=== PATIENT | male | born 1960 ===

== ENCOUNTER 2017-07-28 10:50 | Emergency (ER) | payer MEDICAID ==
[2017-07-28 11:12] VITALS: BMI 22.8
[2017-07-28 11:14] VITALS: BP 107/77; PULSE 89; RESP 20; TEMP 97.9; O2SAT 99
--- NOTE | 2017-07-28 11:23 | ED PDOC ---
Upper Extremity Pain/Injury Time Seen by Provider: 07/28/17 11:19 Chief Complaint (Nursing): Upper Extremity Problem/Injury Chief Complaint (Provider): Finger injury History Per: Patient History/Exam Limitations: no limitations Onset/Duration Of Symptoms: Other (one week ago) Current Symptoms Are (Timing): Gone Now Quality: "Pain" Severity: Mild Exacerbating Factor(s): Movement Additional Complaint(s): 56 year old male presents to ED for wound check of right 4th digit. He states one week ago he got finger caught in car door. He states he had blood under nail which he drained himself. The finger had pulsating pain for few days and now has resolved. He states his family member is being seen in ED and while he was here, he wanted his finger checked. Denies numbness, limitation of movement , fever, drainage. Past Medical History Reviewed: Historical Data, Nursing Documentation, Vital Signs Vital Signs: Last Vital Signs Temp 97.9 F 07/28/17 11:13 Pulse 89 07/28/17 11:13 Resp 20 07/28/17 11:13 BP 107/77 07/28/17 11:13 Pulse Ox 99 07/28/17 11:13 - Medical History PMH: Diabetes - Family History Family History: States: Unknown Family Hx - Living Arrangements Living Arrangements: With Family - Social History Current smoker - smoking cessation education provided: No Alcohol: None Drugs: Denies - Allergies Allergies/Adverse Reactions: Allergies Allergy/AdvReac Type Severity Reaction Status Date / Time No Known Allergies Allergy Verified 07/28/17 11:16 Review of Systems ROS Statement: Except As Marked, All Systems Reviewed And Found Negative Musculoskeletal: Positive for: Hand Pain (finger injury) Physical Exam - Reviewed Nursing Documentation Reviewed: Yes Vital Signs Reviewed: Yes - Physical Exam Appears: Positive for: Non-toxic, No Acute Distress Head Exam: Positive for: ATRAUMATIC, NORMAL INSPECTION, NORMOCEPHALIC Skin: Positive for: Warm, Dry Eye Exam: Positive for: Normal appearance Neck: Positive for: Normal Extremity: Positive for: Normal ROM, Other (Right fourth digit partial 10% subungual hematoma at base of nail plate, no tenderness to finger. ). Negative for: Swelling Neurologic/Psych: Positive for: Alert, Oriented - ECG O2 Sat by Pulse Oximetry: 99 Medical Decision Making Medical Decision Making: Impression: Finger contusion and subungual hematoma Plan: Xray of finger Patient then states he does not want xray, injury week old and has no pain. He simply wanted to know if he will lose the nail. I explained to patient the nail may fall off, just to keep area clean and dry. Disposition - Clinical Impression Clinical Impression: Subungual hematoma of digit of hand, Finger contusion - Patient ED Disposition Is Patient to be Admitted: No Counseled Patient/Family Regarding: Diagnosis, Need For Followup - Disposition [facility]errals: [facility] [Outside] Disposition: Routine/Home Disposition Time: 11:30 Condition: GOOD Additional Instructions: Mantenga las lesiones de los dedos limpias y secas es posible que la ua se caiga Tristin un seguimiento con de la fuente mdico Instructions: Subungual Hematoma (ED) Print Language: YI - POA Present On Arrival: None
== END 2017-07-28 11:51 | disposition home or self-care (01) ==
LOC: H.ER 10:50
DX: Z48.00 Encounter for change or removal of nonsurgical wound dressing (principal); E11.9 Type 2 diabetes mellitus without complications